=== PATIENT | female | born 1965 | race African-American/Black ===

== ENCOUNTER 2017-08-02 20:00 | Emergency (ER) | payer BC, OTHER ==
[~2017-08-02] VITALS: Ht 162.6 cm; Wt 74.8 kg
--- NOTE | ~2017-08-02 | EKG ---
[address] [place] [place] [address] ELECTROCARDIOGRAM REPORT Name: GERALDO BLANKENSHIP Room #: [id number] Admission: 08/02/17 Attend Phys: Discharge: 08/02/17 Date of : 69 Report #: [id number] THIS REPORT FOR: //name// [facility] ED Test Date: 2017-08-02 Test Time: 20:44:03 Pat Name: GERALDO BLANKENSHIP Department: Room: Gender: F Real Estate Assessor: Sugey BUTT : 1965 Requested By: Zeus Nur Order Number: [id number] MD: Kelechi Rios Measurements Intervals [place] Rate: 74 P: 47 MN: 186 QRS: 21 QRSD: 77 T: 51 QT: 385 QTc: 428 Interpretive Statements Sinus rhythm Borderline low voltage, extremity leads No previous ECG available for comparison Electronically Signed On 08-03-2017 7:23:05 FIELD NURSE CASE MANAGER by Kelechi Rios [email or web address] <ELECTRONICALLY SIGNED> By: Keelchi Rios MD, [facility] 08/03/17 0723 2044 43 Kelechi Rios MD, FACC /EPI
[2017-08-02 21:24] LABS: HEMATOCRIT 30.4 % (37.0-47.0); HEMOGLOBIN 8.9 gm/dL (12.0-15.0); MCH 17.6 pg (26.0-34.0); MCHC 29.2 g/dL (28.0-37.0); MCV 60.3 fL (80.0-100.0); PLATELET COUNT 495 thou/uL (150-400); RBC 5.04 mil/uL (4.20-5.00); RDW 20.7 % (10.5-14.5); WBC 10.1 thou/uL (4.0-11.0)
[2017-08-02 21:34] LABS: ANION GAP 12 mmol/L (7-16); BUN 19 mg/dL (7-18); CALCIUM 9.4 mg/dL (8.5-10.1); CHLORIDE 105 mmol/L (98-107); CO2 23 mmol/L (21-32); CREATININE 0.8 mg/dL (0.6-1.0); GLUCOSE 103 mg/dL (74-106); SODIUM 140 mmol/L (136-145)
[2017-08-02 22:00] LABS: TROPONIN-I < 0.04 ng/mL (<0.06)
[2017-08-02 22:05] LABS: ANISOCYTOSIS 2+; HYPOCHROMASIA 2+; MICROCYTES 3+
== END 2017-08-02 22:10 | disposition home or self-care (01) ==
LOC: ER 20:00
PROVIDERS: Nurse Practitioner
DX: R55 Syncope and collapse (principal); D64.9 Anemia, unspecified